=== PATIENT | female | born 1965 | race Caucasian/White ===

== ENCOUNTER → 2016-09-19 | Outpatient (CLI) | payer OTHER ==
--- NOTE | 2016-09-19 14:35 | RAD ---
DATE: 09/19/2016 EXAM: DIGITAL DIAGNOSTIC BILATERAL, BREAST LEFT HISTORY: Follow-up breast nodules COMPARISON: 03/19/2016, 02/27/2015 This study was interpreted with the benefit of Computerized Aided Detection (CAD). The breast parenchyma shows scattered fibroglandular densities. Breast parenchyma level B. FINDINGS: Several small right breast nodules are unchanged. The nodule at the 12:00 location left breast appears to have increased slightly in size measuring 10 mm in greatest diameter on the oblique view compared to a measurement of 8-9 mm on the previous study. Its margins are smooth. No other new or enlarging breast densities are seen. Scattered benign type calcifications are present. No suspicious microcalcifications have developed. Left breast ultrasound, 09/19/2016: A targeted ultrasound exam was performed of the 12:00 region in the left breast. The hypoechoic nodule seen on the 03/19/16 study is again identified. It is smooth and wider than tall. It currently measures 6.9 x 7.7 x 6.2 mm compared to measurements of 6.8 x 7.5 x 4.8 mm on the previous study. Is therefore appears to have increased slightly in size in only one dimension. The discrepancy between the ultrasound measurements and the mammographic measurements are probably technical, related to breast compression at mammography. The nodule demonstrates posterior acoustic enhancement. On today's images there does appear to be some internal vascularity suggesting that this is a solid lesion. A fibroadenoma appears most likely. IMPRESSION: 1. Slight interval increase in size of the 12:00 left breast nodule. Today's ultrasound exam suggests that the nodule is solid. This is most likely a fibroadenoma, although a circumscribed malignancy cannot be excluded. Ultrasound-guided biopsy is suggested for further evaluation. 2. Stable right mammograms. Note: The photonics engineering technologist informed the patient of our recommendation for biopsy at the time of the exam. BI-RADS CATEGORY: 4 SUSPICIOUS ABNORMALITY- BIOPSY SHOULD BE CONSIDERED RECOMMENDED FOLLOW-UP: BIO BIOPSY RECOMMENDED PQRS compliance statement: Patient information was entered into a reminder system with a target due date for the next mammogram. Mammography is a sensitive method for finding small breast cancers, but it does not detect them all and is not a substitute for careful clinical examination. A negative mammogram does not negate a clinically suspicious finding and should not result in delay in biopsying a clinically suspicious abnormality. "Our facility is accredited by the [employer] Mammography [employer]."
== END | disposition home or self-care (01) ==
LOC: MAMMO 12:40
PROVIDERS: ATTEND Nurse Practitioner
DX: N63 Unspecified lump in breast (principal)
CPT/HCPCS: 76641; G0204; 77066

== ENCOUNTER → 2018-02-23 | Outpatient (CLI) | payer OTHER ==
--- NOTE | 2018-02-23 11:18 | RAD ---
DATE: 02/23/2018 EXAM: DIGITAL SCREEN BILAT W/CAD HISTORY: Routine screening. History of cyst removal in the left breast. COMPARISON: Previous mammogram from 2016 and 2015. This study was interpreted with the benefit of Computerized Aided Detection (CAD). FINDINGS: Breast Density: SCATTERED The breast parenchyma shows scattered fibroglandular densities. Breast parenchyma level B. The skin and nipples are within normal limits. No suspicious calcifications, spiculated masses or areas of architectural distortion. Benign-appearing bilateral calcifications. Stable multiple round small masses are seen in the bilateral breasts when compared to previous mammogram from 08/28/2015. There is a 1.3 cm round mass in the 12:00 position of the left breast with well-circumscribed margins approximately 7 cm from the nipple. Biopsy marker is seen within this mass. This mass has been present on multiple previous mammograms and was biopsied on 10/08/2016. IMPRESSION: Multiple bilateral round masses stable on multiple previous mammograms. Per history the lesion in the left breast was biopsied on 2016 with improvement in the size of the lesion. The lesion demonstrates increase in size and likely suggests recurrent cyst. However ultrasound is recommended for further evaluation. BI-RADS CATEGORY: 0 INCOMPLETE: NEED ADDITIONAL IMAGING EVAULATION AND/OR PRIOR MAMMOGRAMS FOR COMPARISON RECOMMENDED FOLLOW-UP: ADD ADDITIONAL IMAGING. Ultrasound of the left central breast at 12 o'clock position for evaluation of round mass. PQRS compliance statement: Patient information was entered into a reminder system with a target due date for the next mammogram. Mammography is a sensitive method for finding small breast cancers, but it does not detect them all and is not a substitute for careful clinical examination. A negative mammogram does not negate a clinically suspicious finding and should not result in delay in biopsying a clinically suspicious abnormality. "Our facility is accredited by the [employer] Mammography [employer]."
== END | disposition home or self-care (01) ==
LOC: MAMMO 08:46
DX: Z12.31 Encounter for screening mammogram for malignant neoplasm of breast (principal)
CPT/HCPCS: 77067

== ENCOUNTER → 2018-03-15 | Outpatient (CLI) | payer OTHER ==
--- NOTE | 2018-03-15 14:08 | RAD ---
Left breast ultrasound, 03/15/2018: History: Follow-up nodule Comparison is made to a study from 09/19/2016. A targeted ultrasound exam was performed at the 12:00 location where a small hypoechoic nodule was visualized on the previous study. Its margins are smooth. It is wider than tall. It currently measures 11 mm in greatest diameter compared to a measurement of approximately 10 mm on the previous study. An echogenic biopsy clip is noted along its margin. The previous biopsy indicated that this is a fibroadenoma. No other abnormality is seen in this region. IMPRESSION: The small left breast nodule at 12:00 demonstrates a slight increase in size since 09/19/2016. The previous biopsy indicated that this is a fibroadenoma. Sonographic follow-up in 6 months is suggested. BI-RADS 3-probably benign findings
== END | disposition home or self-care (01) ==
LOC: US 12:52
DX: N63.21 Unspecified lump in the left breast, upper outer quadrant (principal)
CPT/HCPCS: 76641

== ENCOUNTER → 2018-09-08 | Outpatient (CLI) | payer OTHER ==
--- NOTE | 2018-09-08 14:02 | RAD ---
Left breast ultrasound, 09/08/2018: History: Follow-up nodule A targeted ultrasound exam was performed at the 12:00 location for follow-up of a known breast nodule. Approximate 6 cm from the nipple at the 12:00 location a smooth oval-shaped hypoechoic nodule is again identified. There is internal color flow indicating that this is a solid nodule. Reportedly previous biopsy indicated that this is a fibroadenoma. It currently measures 11 x 11 x 6 mm compared to measurements of 11 x 10 x 7 mm on the 03/15/2018 exam. This slight difference is probably technical in nature. The nodule has increased in size since the original study of 03/19/2016 at which time it measured 8 x 7 x 5 mm. IMPRESSION: The left breast nodule is unchanged in size since 03/15/2018. A previous biopsy showed that this is a fibroadenoma. Routine yearly mammography is suggested. BI-RADS 2-benign findings
== END | disposition home or self-care (01) ==
LOC: US 13:13
PROVIDERS: ATTEND Nurse Practitioner Family
DX: N63.21 Unspecified lump in the left breast, upper outer quadrant (principal)
CPT/HCPCS: 76641

== ENCOUNTER → 2019-09-27 | Outpatient (CLI) | payer OTHER ==
--- NOTE | 2019-09-27 12:08 | RAD ---
DATE: 09/27/2019 10:30 AM EXAM: DIGITAL SCREEN BILAT W/CAD HISTORY: Screening COMPARISON: 02/23/2018 bilateral screening mammogram, and left postprocedure mammogram of 10/08/2016. Bilateral CC and MLO views of the breasts were performed. . This study was interpreted with the benefit of Computerized Aided Detection (CAD). FINDINGS: Breast Density: FATTY The Breast Parenchyma is primarily fatty replaced. Breast parenchyma level density A. Stable oval isodense circumscribed 12 mm mass in the superior left breast with an associated T-shaped biopsy marker, consistent with a benign etiology. No suspicious masses, microcalcifications or architectural distortion is present to suggest malignancy in either breast. The visualized axillae are unremarkable. IMPRESSION: No mammographic evidence of malignancy. BI-RADS CATEGORY: 2 BENIGN FINDING(S) RECOMMENDED FOLLOW-UP: 12M 12 MONTH FOLLOW-UP Annual screening mammography is recommended, unless clinically indicated sooner based on symptoms or change in physical exam. PQRS compliance statement: Patient information was entered into a reminder system with a target due date for the next mammogram. Mammography is a sensitive method for finding small breast cancers, but it does not detect them all and is not a substitute for careful clinical examination. A negative mammogram does not negate a clinically suspicious finding and should not result in delay in biopsying a clinically suspicious abnormality. "Our facility is accredited by the [employer] Mammography [employer]."
== END | disposition home or self-care (01) ==
LOC: MAMMO 10:18
PROVIDERS: ATTEND Nurse Practitioner Family
DX: Z12.31 Encounter for screening mammogram for malignant neoplasm of breast (principal)
CPT/HCPCS: 77067